=== PATIENT | male | born 1995 | race Caucasian/White ===

== ENCOUNTER → 2016-04-04 | Outpatient (CLI) | payer BC ==
--- NOTE | 2016-04-04 19:22 | DIAGNOSTIC IMAGING REPORT ---
TESTICULAR ULTRASOUND CLINICAL HISTORY: Right-sided testicular pain. COMPARISON STUDY: No previous studies for comparison. FINDINGS: The right testis measures 43 x 35 x 24 mm. The left testis measures 42 x 33 x 27 mm. No intratesticular masses are visualized. There is no evidence of testicular torsion. No epididymal lesions were demonstrated. IMPRESSION: No evidence of intratesticular mass. No evidence of testicular torsion. Electronically signed by: Yeison Pinto M.D. 04/04/2016 7:20 PM Dictated Date/Time: 04/04/2016 7:19 PM
== END | disposition home or self-care (01) ==
LOC: C.ULTR 18:26
PROVIDERS: ATTEND Hospitalist
DX: N50.811 Right testicular pain (principal)